=== PATIENT | female | born 1930 | race Hispanic/Latino ===

== ENCOUNTER 2016-11-29 13:12 | Emergency (ER) | payer MEDICARE ==
[2016-11-29 15:14] LABS: Basophils % (Auto) 0.5 % (0.0-1.8); Eosinophils % (Auto) 0.6 % (0.0-4.3); Hematocrit 43.9 % (30.3-42.9); Hemoglobin 14.5 gm/dl (10.1-14.3); Mean Corpuscular HGB Conc 33 % (30-34); Mean Corpuscular Hemoglobin 32 pg (28-32); Mean Corpuscular Volume 96 fl (79-97); Platelet Count 247 K/mm3 (140-440); Red Blood Count 4.57 M/mm3 (3.65-5.03); Red Cell Distribution Width 13.6 % (13.2-15.2); White Blood Count 8.9 K/mm3 (4.5-11.0)
[2016-11-29 15:24] LABS: Alanine Aminotransferase 22 units/L (7-56); Albumin 4.1 g/dL (3.9-5); Albumin/Globulin Ratio 1.3 %; Alkaline Phosphatase 66 units/L (35-129); Anion Gap 12 mmol/L; BUN/Creatinine Ratio 23.33; Blood Urea Nitrogen 14 mg/dL (7-17); Calcium 9.5 mg/dL (8.4-10.2); Carbon Dioxide 31 mmol/L (22-30); Chloride 98.4 mmol/L (98-107); Glucose 105 mg/dL (65-100); Potassium 4.1 mmol/L (3.6-5.0); Sodium 137 mmol/L (137-145); Total Protein 7.3 g/dL (6.3-8.2)
[2016-11-29] MEDS ORDERED: MORPHINE IV ONE (15:27)
[2016-11-29] MEDS ORDERED: NACL 0.9% 1000 ML 1,000 ML IV ONE (15:27)
[2016-11-29 15:35] VITALS: BP 165/97
[2016-11-29 15:35] LABS: Bacteria,Urine 1+ /HPF (Negative); Bilirubin,Urine NEG (Negative); Blood,Urine NEG (Negative); Ketones,Urine NEG (Negative); Leukocyte Esterase,Urine LG (Negative); Nitrite,Urine NEG (Negative); Protein,Urine <15 mg/dL mg/dL (Negative); Urobilinogen,Urine < 2.0 mg/dL (<2.0)
--- NOTE | 2016-11-29 15:49 | Emergency Department Report ---
ED Abdominal Pain HPI - General Chief Complaint: Abdominal Pain Stated Complaint: ABD PAIN/VOMITING Time Seen by Provider: 11/29/16 15:15 Source: patient Mode of arrival: Ambulatory Limitations: No Limitations - History of Present Illness Initial Comments: 86-year-old female with sudden onset of abdominal pain approximately 10 AM this morning. States she ate some toast and drank her morning coffee and then developed abdominal pain. She describes pain as sharp and diffuse. Denies fevers chills nausea or vomiting. She does have a history of A. fib and is on Coumadin. She has had a cholecystectomy. -: Sudden Location: epigastric Migration to: no migration Severity: moderate Severity scale (0 -10): 6 Quality: sharp Consistency: constant Improves With: nothing Worsens With: nothing Associated Symptoms: nausea. denies: vomiting, diarrhea, fever - Related Data Home Medications Medication Instructions Recorded Confirmed Last Taken Budesoni/Formotero 160-4.5(Nf) 2 puff IH BID 03/02/14 03/02/14 03/02/14 [Symbicort 160-4.5 (Nf)] Levothyroxine [Synthroid] 75 mcg PO QAM 03/02/14 03/02/14 03/02/14 Propylene Glycol/Peg 400/Pf 1 - 2 drop OP PRN 03/02/14 03/02/14 03/02/14 [Systane 0.3-0.4% Eye Drops] Previous Rx's Medication Instructions Recorded Last Taken Type Carvedilol [Coreg] 6.25 mg PO BID #60 tablet 03/03/14 Unknown Rx Warfarin Sodium [Coumadin] 3 mg PO QPM #30 tablet 03/03/14 Unknown Rx Acetaminophen [Tylenol Arthritis] 650 mg PO Q6HR PRN #60 tablet.er 11/29/16 Unknown Rx Levofloxacin [Levaquin TAB] 500 mg PO DAILY #9 tablet 11/29/16 Unknown Rx Promethazine [Phenergan TAB] 25 mg PO Q6HR PRN #20 tab 11/29/16 Unknown Rx Allergies Allergy/AdvReac Type Severity Reaction Status Date / Time amoxicillin [Amoxicillin] Allergy Nausea Verified 03/02/14 20:22 pantoprazole sodium Allergy Rash Verified 03/02/14 20:22 [From Protonix] Sulfa (Sulfonamide Allergy Rash Verified 03/02/14 20:22 Antibiotics) esomeprazole magnesium AdvReac Unknown Verified 03/02/14 20:22 [From Nexium] ED Review of Systems ROS: Stated complaint: ABD PAIN/VOMITING Other details as noted in HPI Constitutional: denies: chills, fever Eyes: denies: eye pain, eye discharge, vision change ENT: denies: ear pain, throat pain Respiratory: denies: cough, shortness of breath, wheezing Cardiovascular: denies: chest pain, palpitations Endocrine: no symptoms reported Gastrointestinal: abdominal pain, nausea. denies: vomiting, diarrhea, constipation Genitourinary: denies: urgency, dysuria, discharge Musculoskeletal: denies: back pain, joint swelling, arthralgia Skin: denies: rash, lesions Neurological: denies: headache, weakness, paresthesias Psychiatric: denies: anxiety, depression Hematological/Lymphatic: denies: easy bleeding, easy bruising ED Past Medical Hx - Past Medical History Previous Medical History?: Yes Hx Asthma: Yes Additional medical history: a-fib, diverticulitis, gastritis, hypothyroidism - Surgical History Past Surgical History?: Yes Hx Cholecystectomy: Yes - Family History Family history: no significant - Social History Smoking Status: Never Smoker Substance Use Type: None - Medications Home Medications: Home Medications Medication Instructions Recorded Confirmed Last Taken Type Budesoni/Formotero 160-4.5(Nf) 2 puff IH BID 03/02/14 03/02/14 03/02/14 History [Symbicort 160-4.5 (Nf)] Levothyroxine [Synthroid] 75 mcg PO QAM 03/02/14 03/02/14 03/02/14 History Propylene Glycol/Peg 400/Pf 1 - 2 drop OP PRN 03/02/14 03/02/14 03/02/14 History [Systane 0.3-0.4% Eye Drops] Carvedilol [Coreg] 6.25 mg PO BID #60 tablet 03/03/14 Unknown Rx Warfarin Sodium [Coumadin] 3 mg PO QPM #30 tablet 03/03/14 Unknown Rx Acetaminophen [Tylenol Arthritis] 650 mg PO Q6HR PRN #60 tablet.er 11/29/16 Unknown Rx Levofloxacin [Levaquin TAB] 500 mg PO DAILY #9 tablet 11/29/16 Unknown Rx Promethazine [Phenergan TAB] 25 mg PO Q6HR PRN #20 tab 11/29/16 Unknown Rx ED Physical Exam - General Limitations: No Limitations General appearance: alert, in no apparent distress - Head Head exam: Present: atraumatic, normocephalic - Eye Eye exam: Present: normal appearance - ENT ENT exam: Present: mucous membranes moist - Neck Neck exam: Present: normal inspection - Respiratory Respiratory exam: Present: normal lung sounds bilaterally. Absent: respiratory distress - Cardiovascular Cardiovascular Exam: Present: regular rate, irregular rhythm. Absent: systolic murmur, diastolic murmur, rubs, gallop - GI/Abdominal GI/Abdominal exam: Present: soft, tenderness (epigastric), guarding, normal bowel sounds. Absent: distended, rebound, rigid, mass, pulsatile mass - Extremities Exam Extremities exam: Present: normal inspection, full ROM. Absent: tenderness - Neurological Exam Neurological exam: Present: alert, oriented X3 - Psychiatric Psychiatric exam: Present: normal affect, normal mood - Skin Skin exam: Present: warm, dry, intact, normal color. Absent: rash ED Course Vital Signs 11/29/16 11/29/16 11/29/16 14:35 15:34 15:35 Temperature 97.5 F L Pulse Rate 70 67 Respiratory 16 16 18 Rate Blood Pressure 159/96 Blood Pressure 165/97 [Left] O2 Sat by Pulse 100 96 Oximetry ED Medical Decision Making - Lab Data Result diagrams: 11/29/16 14:52 11/29/16 14:52 Laboratory Results - last 24 hr 11/29/16 11/29/16 11/29/16 14:52 14:52 14:52 WBC 8.9 RBC 4.57 Hgb 14.5 H Hct 43.9 H MCV 96 MCH 32 MCHC 33 RDW 13.6 Plt Count 247 Lymph % (Auto) 11.5 L [place] % (Auto) 4.8 Eos % (Auto) 0.6 Baso % (Auto) 0.5 Lymph # 1.0 L [place] # 0.4 Eos # 0.1 Baso # 0.0 Seg Neutrophils % 82.6 H Seg Neutrophils # 7.4 Sodium 137 Potassium 4.1 Chloride 98.4 Carbon Dioxide 31 H Anion Gap 12 BUN 14 Creatinine 0.6 L Estimated GFR > 60 BUN/Creatinine Ratio 23.33 Glucose 105 H Lactic Acid Calcium 9.5 Total Bilirubin 0.50 AST 34 ALT 22 Alkaline Phosphatase 66 Total Protein 7.3 Albumin 4.1 Albumin/Globulin Ratio 1.3 Lipase 23 Urine Color Urine Turbidity Urine pH Ur Specific [place] Urine Protein Urine Glucose (UA) Urine Ketones Urine Blood Urine Nitrite Urine Bilirubin Urine Urobilinogen Ur Leukocyte Esterase Urine WBC (Auto) Urine RBC (Auto) U Epithel Cells (Auto) Urine Bacteria (Auto) Amorphous Crystals 11/29/16 11/29/16 15:19 15:51 WBC RBC Hgb Hct MCV MCH MCHC RDW Plt Count Lymph % (Auto) [place] % (Auto) Eos % (Auto) Baso % (Auto) Lymph # [place] # Eos # Baso # Seg Neutrophils % Seg Neutrophils # Sodium Potassium Chloride Carbon Dioxide Anion Gap BUN Creatinine Estimated GFR BUN/Creatinine Ratio Glucose Lactic Acid 1.00 Calcium Total Bilirubin AST ALT Alkaline Phosphatase Total Protein Albumin Albumin/Globulin Ratio Lipase Urine Color Yellow Urine Turbidity Cloudy Urine pH 7.0 Ur Specific [place] 1.016 Urine Protein <15 mg/dl Urine Glucose (UA) Neg Urine Ketones Neg Urine Blood Neg Urine Nitrite Neg Urine Bilirubin Neg Urine Urobilinogen < 2.0 Ur Leukocyte Esterase Lg Urine WBC (Auto) 27.0 H Urine RBC (Auto) 6.0 U Epithel Cells (Auto) 6.0 Urine Bacteria (Auto) 1+ Amorphous Crystals Few - Medical Decision Making 86-year-old female with a history of sudden onset abdominal pain this morning she is tender in her epigastrium without significant radiation. Labs do not show an elevated white blood cell count her chemistry is normal. Plan to check lipase and lactate in addition we'll get a CT abdomen and pelvis with IV contrast. Treatment with IV fluids and IV morphine. Labs including CBC lipase and lactate were all normal. She does have 27 whites in her urine. It is possible she has UTI versus pyelonephritis. I did treat with IV ceftriaxone for single dose and discharged home with oral antibiotics. Portions of this chart were dictated with dictation software. There may be dictation errors contained within this note. Critical care attestation.: If time is entered above; I have spent that time in minutes in the direct care of this critically ill patient, excluding procedure time. ED Disposition Clinical Impression: Urinary tract infection, Abdominal pain Disposition: TO HOME OR SELFCARE Is pt being admited?: No Does the pt Need Aspirin: No Condition: Stable Instructions: Abdominal Pain (ED), Urinary Tract Infection in Women (ED) Prescriptions: Acetaminophen [Tylenol Arthritis] 650 mg PO Q6HR PRN #60 tablet.er PRN Reason: Pain Levofloxacin [Levaquin TAB] 500 mg PO DAILY #9 tablet Promethazine [Phenergan TAB] 25 mg PO Q6HR PRN #20 tab PRN Reason: Nausea
[2016-11-29] MEDS ORDERED: NACL ONE (15:57)
--- NOTE | 2016-11-29 16:42 | Cat Scan Report ---
CT of the abdomen and pelvis with IV contrast. History: Abdominal pain. Findings: The liver is normal in size and configuration with no focal abnormalities. The gallbladder has been removed. The spleen is normal treated there appears be a small splenule medial to the spleen. The pancreas is atrophic but otherwise unremarkable. The kidneys are normal in size and configuration with no evidence of mass or hydronephrosis. Numerous diverticula are seen in the distal colon, but no radiographic evidence of diverticulitis is seen. There is no evidence of appendicitis. No free air is identified. A small umbilical hernia is identified with minimal fluid, but no bowel. Impression: 1. Diverticulosis coli. 2. Status post cholecystectomy.
[2016-11-29] MEDS ORDERED: ROCEPHIN/NS 1 GM/50 ML 1 GM/50 ML BAG IV ONE (17:04)
[2016-11-29 17:28] LABS: INR 2.29 (0.87-1.13)
== END 2016-11-29 18:43 | disposition home or self-care (01) ==
LOC: ED 13:12
DX: N39.0 Urinary tract infection, site not specified (principal); J45.909 Unspecified asthma, uncomplicated; E03.9 Hypothyroidism, unspecified
CPT/HCPCS: 36415; 74177; 80053; 81001; 82140; 83690; 85025; 85610; 96361; 96365; 96375; 99284; J0696; J2270; J7030; Q9967

== ENCOUNTER 2016-12-13 11:34 | Inpatient (IN) | payer MEDICARE ==
[2016-12-13 12:42] LABS: Bilirubin,Urine NEG (Negative); Blood,Urine NEG (Negative); Ketones,Urine TR mg/dL (Negative); Leukocyte Esterase,Urine NEG (Negative); Mucus,Urine FEW /HPF; Nitrite,Urine NEG (Negative); Protein,Urine <15 mg/dL mg/dL (Negative); Urobilinogen,Urine < 2.0 mg/dL (<2.0)
[2016-12-13 13:46] LABS: Basophils % (Auto) 0.6 % (0.0-1.8); Eosinophils % (Auto) 0.6 % (0.0-4.3); Hematocrit 41.3 % (30.3-42.9); Hemoglobin 13.6 gm/dl (10.1-14.3); Mean Corpuscular HGB Conc 33 % (30-34); Mean Corpuscular Hemoglobin 32 pg (28-32); Mean Corpuscular Volume 97 fl (79-97); Platelet Count 234 K/mm3 (140-440); Red Blood Count 4.27 M/mm3 (3.65-5.03); Red Cell Distribution Width 13.8 % (13.2-15.2); White Blood Count 6.8 K/mm3 (4.5-11.0)
[2016-12-13 14:03] LABS: Alanine Aminotransferase 29 units/L (7-56); Albumin 3.4 g/dL (3.9-5); Albumin/Globulin Ratio 1.4 %; Alkaline Phosphatase 44 units/L (35-129); Anion Gap 15 mmol/L; BUN/Creatinine Ratio 11.42; Blood Urea Nitrogen 8 mg/dL (7-17); Calcium 9.1 mg/dL (8.4-10.2); Carbon Dioxide 27 mmol/L (22-30); Glucose 104 mg/dL (65-100); Lipase 25 units/L (13-60); Potassium 4.2 mmol/L (3.6-5.0); Sodium 139 mmol/L (137-145); Total Protein 5.9 g/dL (6.3-8.2)
--- NOTE | 2016-12-13 14:17 | XRay Report ---
Flat and upright abdomen: History: Abdominal pain. Findings: No free intraperitoneal air. Moderately distended loops of small bowel with minimal air the large bowel. No radiopaque calculus or abnormal calcification. Impression: Incomplete small bowel obstruction or ileus.
[2016-12-13] MEDS ORDERED: NACL ONE (16:06)
--- NOTE | 2016-12-13 17:03 | Emergency Department Report ---
HPI <JONATHAN STANLEY - Last Filed: 12/13/16 18:00> - HPI HPI: This is a 86-year-old female presents to the emergency department with right lower quadrant abdominal and flank pain that started this morning. The patient says she has a recent history of visiting [facility] and being diagnosed with a urinary tract infection. She had a CT of the abdomen and pelvis at that time that did not show any acute process for abdominal pain and was sent home with antibiotics. She is followed up with her primary care physician and has been on further antibiotics since. However, today patient began having sharp right lower quadrant abdominal pains. She denies any nausea , vomiting, dysuria, problems with bowel or bladder. She is not taken anything today for her symptoms prior to presentation. She has a past medical history of atrial fibrillation, diverticulitis, gastritis and hypothyroidism. <MAGGI RANDLE - Last Filed: 12/16/16 20:20> - General Chief Complaint: Abdominal Pain Time Seen by Provider: 12/13/16 12:15 ED Past Medical Hx <JONATHAN STANLEY - Last Filed: 12/13/16 18:00> - Past Medical History Hx Asthma: Yes Additional medical history: a-fib, diverticulitis, gastritis, hypothyroidism - Surgical History Hx Cholecystectomy: Yes - Social History Smoking Status: Never Smoker Substance Use Type: None <MAGGI RANDLE - Last Filed: 12/16/16 20:20> - Medications Home Medications: Home Medications Medication Instructions Recorded Confirmed Last Taken Type Budesoni/Formotero 160-4.5(Nf) 2 puff IH BID 03/02/14 12/13/16 12/12/16 20:00 History [Symbicort 160-4.5 (Nf)] 2 PUFFS Levothyroxine [Synthroid] 75 mcg PO QAM 03/02/14 12/13/16 12/12/16 06:00 History Propylene Glycol/Peg 400/Pf 1 - 2 drop OP PRN 03/02/14 12/13/16 03/02/14 History [Systane 0.3-0.4% Eye Drops] ALBUTEROL Inhaler [ProAir HFA 2 puff IH BID PRN 12/13/16 12/13/16 Unknown History Inhaler] Warfarin Sodium [Coumadin] 2.5 mg PO QPM 12/13/16 12/13/16 12/12/16 20:00 History 2.5 MG Sennosides [Senna] 8.6 mg PO DAILY #30 tablet 12/16/16 Unknown Rx ED Review of Systems ROS: Stated complaint: ABD PAIN Other details as noted in HPI <JONATHAN STANLEY - Last Filed: 12/13/16 18:00> ROS: Stated complaint: ABD PAIN Other details as noted in HPI Comment: All other systems reviewed and negative Constitutional: denies: chills, fever Eyes: denies: eye pain, eye discharge, vision change ENT: denies: ear pain, throat pain Respiratory: denies: cough, shortness of breath, wheezing Cardiovascular: denies: chest pain, palpitations Gastrointestinal: abdominal pain. denies: vomiting Genitourinary: denies: urgency, dysuria, discharge Musculoskeletal: denies: back pain, joint swelling, arthralgia Skin: denies: rash, lesions Neurological: denies: headache, weakness, paresthesias <MAGGI RANDLE - Last Filed: 12/16/16 20:20> Physical Exam - Physical Exam Vital Signs: Vital Signs 12/13/16 12/13/16 12/13/16 11:57 14:13 16:34 Temperature 98.1 F Pulse Rate 82 88 88 Respiratory 18 20 18 Rate Blood Pressure 110/59 Blood Pressure 134/81 150/86 [Left] O2 Sat by Pulse 94 100 95 Oximetry 12/13/16 17:56 Temperature Pulse Rate 86 Respiratory 18 Rate Blood Pressure Blood Pressure 158/87 [Left] O2 Sat by Pulse 94 Oximetry <JONATHAN STANLEY - Last Filed: 12/13/16 18:00> - Physical Exam Vital Signs: Vital Signs 12/13/16 12/13/16 12/13/16 11:57 14:13 16:34 Temperature 98.1 F Pulse Rate 82 88 88 Respiratory 18 20 18 Rate Blood Pressure 110/59 Blood Pressure 134/81 150/86 [Left] O2 Sat by Pulse 94 100 95 Oximetry Physical Exam: GENERAL: The patient is well-developed well-nourished. HEENT: Normocephalic. Atraumatic. Extraocular motions are intact. Patient has moist mucous membranes. Pupils equal reactive to light bilaterally. NECK: Supple. Trachea is midline. CHEST/LUNGS: Clear to auscultation. There is no respiratory distress noted. HEART/CARDIOVASCULAR: Regular. There is no tachycardia. There is no gallop rub or murmur. ABDOMEN: Abdomen is soft. Patient has reproducible tenderness to palpation to the right lower quadrant. No guarding rebound tenderness. Patient has normal bowel sounds. There is no abdominal distention. SKIN: There is no rash. There is no edema. There is no diaphoresis. NEURO: The patient is awake, alert, and oriented. The patient is cooperative. The patient has no focal neurologic deficits. The patient has normal speech. MUSCULOSKELETAL: There is no tenderness or deformity. There is no limitation range of motion. There is no evidence of acute injury. <MAGGI RANDLE - Last Filed: 12/16/16 20:20> ED Course Vital Signs 12/13/16 12/13/16 12/13/16 11:57 14:13 16:34 Temperature 98.1 F Pulse Rate 82 88 88 Respiratory 18 20 18 Rate Blood Pressure 110/59 Blood Pressure 134/81 150/86 [Left] O2 Sat by Pulse 94 100 95 Oximetry 12/13/16 17:56 Temperature Pulse Rate 86 Respiratory 18 Rate Blood Pressure Blood Pressure 158/87 [Left] O2 Sat by Pulse 94 Oximetry - Reevaluation(s) Reevaluation #1: 12/13/16 18:00 She was signed out to me by Dr. Randle, briefly she presented to the ED with right lower quadrant abdominal pain. CAT scan results are as follows: Final and mid small bowel prominence with gas and air filled levels. Transition point appears to be in the pelvis of the findings are nonspecific. Considerations include partial small bowel obstruction or paralytic ileus. Scattered linear and bandlike densities in both lung bases may be scar atelectasis. Differential includes pneumonia in the region of consolidation. Grade 1 degenerative spondylolisthesis at L4-L5 Prothrombin local hernia contains fluid Small hernia hiatal Sigmoid and descending colon diverticulosis without definite evidence of acute formation. Dr. FALLON Reevaluation #2: 12/13/16 18:03 Dr. Carrillo general surgery is aware of pt and will consult during inpt admission Pt has been admitted to Dr Leif bowman. Incidental findings and CT was explained to patient a copy CT was given to patient for primary care follow-up after discharge. <JONATHAN STANLEY - Last Filed: 12/13/16 18:00> Vital Signs 12/13/16 12/13/16 12/13/16 11:57 14:13 16:34 Temperature 98.1 F Pulse Rate 82 88 88 Respiratory 18 20 18 Rate Blood Pressure 110/59 Blood Pressure 134/81 150/86 [Left] O2 Sat by Pulse 94 100 95 Oximetry <MAGGI RANDLE - Last Filed: 12/16/16 20:20> ED Medical Decision Making - Lab Data Result diagrams: 12/13/16 13:20 12/13/16 13:20 <JONATHAN STANLEY - Last Filed: 12/13/16 18:00> - Lab Data Result diagrams: 12/15/16 06:57 12/15/16 06:57 - Radiology Data Radiology results: report reviewed, image reviewed interpreted by me: Abdominal x-ray shows nonspecific nonobstructive bowel gas. CT of the abdomen and pelvis with IV contrast shows proximal and mid small bowel prominence with gas and air-fluid levels. Transition point appears to be in the pelvis all the findings are nonspecific. Considerations include partial small bowel obstruction or paralytic ileus. Scattered been urine bandlike densities in both lung bases may be scar atelectasis. Grade 1 degenerative spondylolisthesis at L4 to 5. Small umbilical hernia containing fluid. Sigmoid and descending colon diverticulosis without diverticulitis. - Medical Decision Making 86-year-old female presents to the emergency department with continued abdominal discomfort. Labs are mostly unremarkable and do not show any etiology of her symptoms. Abdominal x-ray was read by radiology as concern for partial small bowel obstruction versus ileus. A CT of the abdomen and pelvis with IV contrast was done that eventually showed concern for partial small bowel obstruction versus ileus as well. The results were read by radiology and seen by my colleague who then got the patient admitted on my behalf. Accepted for admission by the hospitalist service, Dr. Yadav. - Differential Diagnosis gastroenteritis, gastritis, diverticulitis, bowel obstruction, ileus <MAGGI RANDLE - Last Filed: 12/16/16 20:20> Critical care attestation.: If time is entered above; I have spent that time in minutes in the direct care of this critically ill patient, excluding procedure time. <JONATHAN STANLEY - Last Filed: 12/13/16 18:00> Critical Care Time: No Critical care attestation.: If time is entered above; I have spent that time in minutes in the direct care of this critically ill patient, excluding procedure time. <MAGGI RANDLE - Last Filed: 12/16/16 20:20> ED Disposition Is pt being admited?: Yes Does the pt Need Aspirin: No <JONATHAN STANLEY - Last Filed: 12/13/16 18:00> Is pt being admited?: Yes <MAGGI RANDLE - Last Filed: 12/16/16 20:20> Clinical Impression: Small bowel obstruction Abdominal pain Qualifiers: Abdominal location: right lower quadrant Qualified Code(s): R10.31 - Right lower quadrant pain Disposition: OP ADMIT IP TO THIS HOSP Condition: Stable
--- NOTE | 2016-12-13 17:37 | Cat Scan Report ---
FINAL REPORT EXAM: CT ABD AND PELVIS W CONTRAST HISTORY: abdominal pain TECHNIQUE: CT examination of the ABDOMEN after IV contrast CT examination of the PELVIS after IV contrast PRIORS: None. FINDINGS: Nonspecific linear and bandlike densities in both lung bases may be scar or atelectasis. Superimposed pneumonia in the region of slight consolidation is in the differential. Degenerative change in the regional skeleton. No acute fracture or significant osseous lesion. Grade 1 degenerative spondylolisthesis at L4-5 without evidence of spondylolysis. Lumbar scoliosis with upper right apex. Surgically absent gallbladder. Normal-appearing liver, adrenals, pancreas, and spleen. Intact normal caliber abdominal aorta with moderate calcified atherosclerotic plaque. Normal caliber IVC. Normal-appearing kidneys and ureters. A nonspecific very small fluid containing umbilical hernia. Small hiatal hernia. Otherwise normal appearing stomach and duodenum. Nonspecific prominent caliber of small bowel loops in the abdomen and pelvis. These contain gas and air-fluid levels. Transition point appears to be in the pelvis with normal caliber small intestine in the lower pelvis. Considerations include paralytic ileus and/or partial obstruction No pelvic free fluid. Normal-appearing urinary bladder. Uterus not visualized. No adnexal abnormality. Normal-appearing rectum. Moderate scattered diverticulosis in the sigmoid colon without definite evidence of acute inflammation. Slight diverticulosis in descending colon. No gross ascites, free air, or colonic distention. Normal-appearing cecum and terminal ileum. Appendix not visualized. No pericecal inflammation. IMPRESSION: Proximal and mid small bowel prominence with gas and air-fluid levels. Transition point appears to be in the pelvis although findings are nonspecific. Considerations include partial small bowel obstruction or paralytic ileus Scattered linear and bandlike densities in both lung bases may be scar or atelectasis. Differential includes pneumonia in the region of consolidation Grade 1 degenerative spondylolisthesis at L4-5 Very small umbilical hernia contains fluid Small hiatal hernia Sigmoid and descending colon diverticulosis without definite evidence of acute inflammation
--- NOTE | 2016-12-13 18:11 | Admit Criteria Form ---
Admission Criteria Documentation: ABDOMINAL PAIN Clinical Indications for Admission to Inpatient Care (Place 'X' for any and all applicable criteria): Admission is indicated for ANY ONE of the following(1)(2)(3)(4)(5): [X ]I. Inpatient admission required rather than observation care (Also use Abdominal Pain: Observation Care, as appropriate) because of ANY ONE of the following: [ ]a) Severe pain requiring acute inpatient management [ ]b) Identification of etiology/finding that requires inpatient care (eg, aortic dissection, free air) [ ]c) Absent bowel sounds with complete ileus(6) [ ]d) Suspected toxic megacolon [ ]e) Severe electrolyte abnormalities requiring inpatient care [ ]f) High fever or infection requiring inpatient admission as indicated by ANY ONE of following(7)(8): [ ] i) Appropriate outpatient or observational care antimicrobial treatment unavailable, not effective, or not feasible [ ] ii) Documented bacteremia [ ] iii) Temperature > 104.9 degrees F (oral) [ ] iv) T >103.1 F (oral) or < 96.8 F(rectal) that does not respond to all emergency treatment measures [X ]g) Signs of intestinal obstruction [B] [ ]h) Hemodynamic instability [ ]i) IV fluid to replace significant ongoing losses (greater than 3 L/m2 per day) (12)(13) [ ]j) Percutaneous or open drainage (eg, abscess, biliary tract ) procedures [ ]k) Parenteral nutrition regimen that must be implemented on inpatient basis [ ]l) Other condition,treatment or monitoring requiring inpatient admission. [ ]II. Peritoneal signs present [ ]III. Surgery needed that cannot be performed on an ambulatory basis. [ ]IV. Evaluation requires patient to not eat or drink for extended period ( eg, more than 24 hours). [ ]V. Contraindications and/or Inappropriate clinical situations for Observational Care in patients with abdominal pain, when ANY ONE of the following is required: [ ]a) Thorough evaluation is required to prevent catastrophic events due to delays in diagnosing (e.g.Mesenteric ischemia) 1,3 [ ]b) Patient with severe pathology or with chronic symptoms unlikely to improve in the ED stay (3) [ ]. General contraindications and/or Inappropriate clinical situations for Observational Care in patients with abdominal pain, when ANY ONE of the following is required: [ ]a) Prediction of prolongation of LOS based on ANY ONE of the following may be considered as a contraindication for observational care 2, 3, 4, 5, 6, 7, 8, 9, 10, 11 [ ]i) Age > 65 yrs. [ ]ii) Patient arriving by ambulance [ ]iii) Patient with high acuity [ ]iv) Patient requiring vital sign monitoring [ ]v) Patient on IV medication [ ]b) Systolic blood pressures 180mmHg 3,12 [ ]c) Patient with altered mental status including delirium and other alteration of consciousness, (3) [ ]d) Patient whose discharge disposition will be to a [facility]ci home or rehabilitation home should not be managed in Emergency Department Observation Unit. CMS rule requires 3 days hospital stay before such placement.3,13 [ ]e) Patient with failure to thrive due to broad array of etiologies 3,16,17 [ ]f) Inability to ambulate 3,14 Extended stay beyond goal length of stay may be needed for(2)(3): [ ]a) Persistent abdominal pain with suspected intra-abdominal process [ ]b) Diagnosed condition requiring continued stay (e.g., pancreatitis, complicated diverticulitis) [ ]c) Surgery (e.g., colectomy) The original [facility] content created by [employer] has been revised. The portions of the content which have been revised are identified through the use of italic text or in bold, and [facility] has neither reviewed nor approved the modified material.All other unmodified content is copyright [facility]. Please see references footnoted in the original [facility] edition 2016 Admission Criteria Met: Yes
--- NOTE | 2016-12-13 19:26 | History and Physical Report ---
History of Present Illness Chief complaint: My stomach hurts. History of present illness: 86 YO Female with Asthma, A fib, Diverticulosis, Hypothyroidism presents to ED for evaluation. Pt states that she has been experiencing abdominal pain for the past 2 weeks with worsening symptoms over the past 4 hours. Pt states that the pain started again this morning, the pain is 4-7/10, constant, nonradiating, localized to RLQ, worse with movement, and relieved with rest, or lying still. Pt denies fever, chills, CP, Palpitations, nausea, vomiting, dysuria, trauma, BRBPR, hematemesis, recent ill contacts. Past History Past Medical History: atrial fib, hypothyroidism, other (asthma, diverticulosis , obesity.) Past Surgical History: cholecystectomy Social history: , lives with family. denies: smoking, alcohol abuse, prescription drug abuse Family history: hypertension Medications and Allergies Allergies Allergy/AdvReac Type Severity Reaction Status Date / Time amoxicillin [Amoxicillin] Allergy Nausea Verified 12/13/16 19:40 pantoprazole sodium Allergy Rash Verified 12/13/16 19:40 [From Protonix] Sulfa (Sulfonamide Allergy Rash Verified 12/13/16 19:40 Antibiotics) esomeprazole magnesium AdvReac Unknown Verified 12/13/16 19:40 [From Nexium] Home Medications Medication Instructions Recorded Confirmed Last Taken Type Budesoni/Formotero 160-4.5(Nf) 2 puff IH BID 03/02/14 12/13/16 12/12/16 20:00 History [Symbicort 160-4.5 (Nf)] 2 PUFFS Levothyroxine [Synthroid] 75 mcg PO QAM 03/02/14 12/13/16 12/12/16 06:00 History Propylene Glycol/Peg 400/Pf 1 - 2 drop OP PRN 03/02/14 12/13/16 03/02/14 History [Systane 0.3-0.4% Eye Drops] ALBUTEROL Inhaler [Proair] 2 puff IH BID PRN 12/13/16 12/13/16 Unknown History Warfarin Sodium [Coumadin] 2.5 mg PO QPM 12/13/16 12/13/16 12/12/16 20:00 History 2.5 MG Review of Systems All systems: negative Constitutional: no weight loss Ears, nose, mouth and throat: no ear pain Breasts: no swelling Cardiovascular: no chest pain Respiratory: no cough Gastrointestinal: abdominal pain Genitourinary Female: no pelvic pain Menstruation: no ammenorrhea Rectal: no pain Musculoskeletal: no neck pain Integumentary: no rash Neurological: no head injury Psychiatric: no anxiety Endocrine: no cold intolerance Hematologic/Lymphatic: no easy bruising Allergic/Immunologic: no urticaria Exam - Constitutional Vitals: Temp Pulse Resp BP Pulse Ox 98.1 F 86 18 158/87 94 12/13/16 11:57 12/13/16 17:56 12/13/16 17:56 12/13/16 17:56 12/13/16 17:56 General appearance: Present: mild distress, obese - EENT Eyes: Present: PERRL ENT: hearing intact, clear oral mucosa - Neck Neck: Present: supple, normal ROM - Respiratory Respiratory effort: normal Respiratory: bilateral: CTA - Cardiovascular Rhythm: other (tachycardia) - Extremities Extremities: pulses symmetrical, No edema Peripheral Pulses: within normal limits - Abdominal General gastrointestinal: Present: soft, tender, hypoactive bowel sounds. Absent: hepatomegaly, splenomegaly, mass, hernia Localized gastrointestinal: tender: RLQ, rebound: RLQ Female genitourinary: Present: normal - Rectal Rectal Exam: normal exam-external/orifice - Integumentary Integumentary: Present: clear, dry - Musculoskeletal Musculoskeletal: gait normal, strength equal bilaterally - Psychiatric Psychiatric: appropriate mood/affect, intact judgment & insight - Neurologic Neurologic: CNII-XII intact, moves all extremities Results - Labs CBC & Chem 7: 12/13/16 13:20 12/13/16 13:20 Labs: Abnormal lab results 12/13/16 12/13/16 Range/Units 13:20 13:20 Lymph % (Auto) 12.4 L (13.4-35.0) % Lymph # 0.8 L (1.2-5.4) K/mm3 Seg Neutrophils % 79.1 H (40.0-70.0) % Glucose 104 H (65-100) mg/dL AST 51 H (5-40) units/L Total Protein 5.9 L (6.3-8.2) g/dL Albumin 3.4 L (3.9-5) g/dL Assessment and Plan - Patient Problems (1) Bowel obstruction Current Visit: Yes Status: Acute Qualifiers: Intestinal obstruction type: I Plan to address problem: Surgery consulted in ED, IVF, supportive care, serial abdominal exam, repeat AB xray, lactic acid level (2) Peritonitis Current Visit: Yes Status: Acute Plan to address problem: IVF, IV abx, bowel rest, supportive care (3) Obesity Current Visit: Yes Status: Acute Qualifiers: Obesity type: O Obesity classification: O Serious obesity comorbidity presence: S Body mass index: BMI 30.0-30.9 Plan to address problem: Balanced diet, increased physical activity (4) Asthma Current Visit: Yes Status: Acute Qualifiers: Asthma severity: mild intermittent Asthma complication type: A Plan to address problem: Nebulized therapy, supplemental oxygen, supportive care. (5) Atrial fibrillation Current Visit: Yes Status: Acute Qualifiers: Atrial fibrillation type: A Plan to address problem: resume home medication, (6) DVT prophylaxis Current Visit: Yes Status: Acute
[2016-12-13] MEDS ORDERED: TYLENOL PO PRN (19:29)
[2016-12-13] MEDS ORDERED: DUONEB *Not for PRN Use IH (19:29)
[2016-12-13] MEDS ORDERED: PROAIR IH PRN (19:34)
[2016-12-13] MEDS ORDERED: PROVENTIL IH PRN (19:40)
[2016-12-13] MEDS ORDERED: LEVAQUIN 750MG/150ML 750 MG/150 ML BAG IV SCH (20:00)
[2016-12-13] MEDS ORDERED: LEVAQUIN 750MG/150ML 750 MG/150 ML BAG IV ONE (21:29)
[2016-12-13] MEDS ORDERED: NON-FORMULARY (Budesoni/Formotero 160-4.5(Nf) 2 PUFF) IH SCH (22:00)
[2016-12-14] MEDS: BROVANA NEBU IH SCH ×4 (00:01→20:09)
[2016-12-14] MEDS: PULMICORT IH SCH ×3 (00:02→20:09)
[2016-12-14 00:37] LABS: INR 4.94 (0.87-1.13)
[2016-12-14] MEDS: D5/0.45NS 1,000 ML IV SCH ×2 (01:15→22:03)
[2016-12-14] MEDS: SYNTHROID PO SCH (06:01)
[2016-12-14 06:07] LABS: INR 1.97 (0.87-1.13)
[2016-12-14] MEDS ORDERED: LEVAQUIN 500MG/100ML 500 MG/100 ML BAG IV SCH (10:00)
--- NOTE | 2016-12-14 10:43 | Progress Note ---
Assessment and Plan Assessment and plan: Abdominal pain. Paralytic ileus versus partial small bowel obstruction. Patient admitted to medical floor. NPO, iv fluids. GI Physician consulted. Morphine iv when necessary for pain management Hypothyroidsm. Check TSH and FT4 levels Atrial fibrillation. On Coumadin. INR 1.97 today. Resume Coumadin. DVT prophylaxis. On Coumadin FULL CODE STATUS History Interval history: Patient presented with abdominal pain, no vomiting Hospitalist Physical - Physical exam Narrative exam: Gen Appearance: No acute distress,obese HEENT: normocephalic, atraumatic Neck: supple, no JVD Lungs: Clear to auscultation bilaterally, no wheeze. Heart: S1 and S2 regular, no murmurs, no rubs , no gallop Abdomen: Soft , mild right lower quadrant tender, no rebound tenderness, normal bowel sounds Extremity: No edema, clubbing or cyanosis Neuro : Awake, alert,oriented x3 , No focal neurological signs. - Constitutional Vitals: Temp Pulse Resp BP Pulse Ox 98.4 F 69 18 130/62 95 12/14/16 07:25 12/14/16 09:10 12/14/16 09:10 12/14/16 07:25 12/14/16 09:00 Results - Labs CBC & Chem 7: 12/13/16 13:20 12/13/16 13:20 Labs: Laboratory Last Values WBC 6.8 K/mm3 (4.5-11.0) 12/13/16 13:20 RBC 4.27 M/mm3 (3.65-5.03) 12/13/16 13:20 Hgb 13.6 gm/dl (10.1-14.3) 12/13/16 13:20 Hct 41.3 % (30.3-42.9) 12/13/16 13:20 MCV 97 fl (79-97) 12/13/16 13:20 MCH 32 pg (28-32) 12/13/16 13:20 MCHC 33 % (30-34) 12/13/16 13:20 RDW 13.8 % (13.2-15.2) 12/13/16 13:20 Plt Count 234 K/mm3 (140-440) 12/13/16 13:20 Lymph % (Auto) 12.4 % (13.4-35.0) L 12/13/16 13:20 [place] % (Auto) 7.3 % (0.0-7.3) 12/13/16 13:20 Eos % (Auto) 0.6 % (0.0-4.3) 12/13/16 13:20 Baso % (Auto) 0.6 % (0.0-1.8) 12/13/16 13:20 Lymph # 0.8 K/mm3 (1.2-5.4) L 12/13/16 13:20 [place] # 0.5 K/mm3 (0.0-0.8) 12/13/16 13:20 Eos # 0.0 K/mm3 (0.0-0.4) 12/13/16 13:20 Baso # 0.0 K/mm3 (0.0-0.1) 12/13/16 13:20 Seg Neutrophils % 79.1 % (40.0-70.0) H 12/13/16 13:20 Seg Neutrophils # 5.4 K/mm3 (1.8-7.7) 12/13/16 13:20 PT 23.5 Sec. (12.2-14.9) H 12/14/16 05:33 INR 1.97 (0.87-1.13) H 12/14/16 05:33 Sodium 139 mmol/L (137-145) 12/13/16 13:20 Potassium 4.2 mmol/L (3.6-5.0) 12/13/16 13:20 Chloride 101.0 mmol/L (98-107) 12/13/16 13:20 Carbon Dioxide 27 mmol/L (22-30) 12/13/16 13:20 Anion Gap 15 mmol/L 12/13/16 13:20 BUN 8 mg/dL (7-17) 12/13/16 13:20 Creatinine 0.7 mg/dL (0.7-1.2) 12/13/16 13:20 Estimated GFR > 60 ml/min 12/13/16 13:20 BUN/Creatinine Ratio 11.42 % 12/13/16 13:20 Glucose 104 mg/dL (65-100) H 12/13/16 13:20 Lactic Acid 0.90 mmol/L (0.7-2.0) 12/13/16 19:56 Calcium 9.1 mg/dL (8.4-10.2) 12/13/16 13:20 Total Bilirubin 0.50 mg/dL (0.1-1.2) 12/13/16 13:20 AST 51 units/L (5-40) H 12/13/16 13:20 ALT 29 units/L (7-56) 12/13/16 13:20 Alkaline Phosphatase 44 units/L (35-129) 12/13/16 13:20 Total Protein 5.9 g/dL (6.3-8.2) L 12/13/16 13:20 Albumin 3.4 g/dL (3.9-5) L 12/13/16 13:20 Albumin/Globulin Ratio 1.4 % 12/13/16 13:20 Lipase 25 units/L (13-60) 12/13/16 13:20 Urine Color Yellow (Yellow) 12/13/16 12:29 Urine Turbidity Clear (Clear) 12/13/16 12:29 Urine pH 6.0 (5.0-7.0) 12/13/16 12:29 Ur Specific [place] 1.014 (1.003-1.030) 12/13/16 12:29 Urine Protein <15 mg/dl mg/dL (Negative) 12/13/16 12:29 Urine Glucose (UA) Neg mg/dL (Negative) 12/13/16 12:29 Urine Ketones Tr mg/dL (Negative) 12/13/16 12:29 Urine Blood Neg (Negative) 12/13/16 12:29 Urine Nitrite Neg (Negative) 12/13/16 12:29 Urine Bilirubin Neg (Negative) 12/13/16 12:29 Urine Urobilinogen < 2.0 mg/dL (<2.0) 12/13/16 12:29 Ur Leukocyte Esterase Neg (Negative) 12/13/16 12:29 Urine WBC (Auto) 1.0 /HPF (0.0-6.0) 12/13/16 12:29 Urine RBC (Auto) 5.0 /HPF (0.0-6.0) 12/13/16 12:29 Urine Mucus Few /HPF 12/13/16 12:29
[2016-12-14] MEDS ORDERED: MORPHINE IV PRN ×2 (14:47→18:35)
[2016-12-14] MEDS ORDERED: COUMADIN NO DOSE TODAY PO ONE (17:00)
[2016-12-14] MEDS: COUMADIN PO SCH (17:23)
[2016-12-14] MEDS ORDERED: WARFARIN SODIUM 2.5 MG PO SCH (18:00)
--- NOTE | 2016-12-14 18:43 | Gastroenterology Consultation ---
History of Present Illness - Reason for Consult Consult date: 12/14/16 Partial SBO Requesting physician: TAVIA STAPLES - History of Present Illness The patient is an 86 yo female admitted with a 2 week hx of intermittent N/V with abdominal pain. This is most severe in the RLQ, but is intermittent in nature. It is not associated with stools or eating. She has had markedly less stool output in the last 2 weeks (ever since a "severe UTI") and her stomach sometimes swells very large. Since being admitted yesterday, she has had 3 BMs. She has no blood in the stool, and she says the pain is much better today. She is passing flatus daily. She had a negative colonoscopy 2 years ago , and she has no hx of abdominal adhesions. She has had a lap CCY, as well as a MARCO. She has had no hx of bowel obstruction, but a CT scan in the ER was read as a partial bowel obstruction versus ileus. She has no family hx of GI cancer. Prior to this illness, she was active and had no exertional CP or SOB. Past History Past Medical History: atrial fib, hypothyroidism, other (asthma, diverticulosis , obesity.) Past Surgical History: cholecystectomy Social history: , lives with family. denies: smoking, alcohol abuse, prescription drug abuse Family history: hypertension Medications and Allergies Allergies Allergy/AdvReac Type Severity Reaction Status Date / Time amoxicillin [Amoxicillin] Allergy Nausea Verified 12/13/16 19:40 pantoprazole sodium Allergy Rash Verified 12/13/16 19:40 [From Protonix] Sulfa (Sulfonamide Allergy Rash Verified 12/13/16 19:40 Antibiotics) esomeprazole magnesium AdvReac Unknown Verified 12/13/16 19:40 [From Nexium] Home Medications Medication Instructions Recorded Confirmed Last Taken Type Budesoni/Formotero 160-4.5(Nf) 2 puff IH BID 03/02/14 12/13/16 12/12/16 20:00 History [Symbicort 160-4.5 (Nf)] 2 PUFFS Levothyroxine [Synthroid] 75 mcg PO QAM 03/02/14 12/13/16 12/12/16 06:00 History Propylene Glycol/Peg 400/Pf 1 - 2 drop OP PRN 03/02/14 12/13/16 03/02/14 History [Systane 0.3-0.4% Eye Drops] ALBUTEROL Inhaler [Proair] 2 puff IH BID PRN 12/13/16 12/13/16 Unknown History Warfarin Sodium [Coumadin] 2.5 mg PO QPM 12/13/16 12/13/16 12/12/16 20:00 History 2.5 MG Active Meds: Active Medications Acetaminophen (Tylenol) 650 mg PO Q4H PRN PRN Reason: Pain MILD(1-3)/Fever >100.5/WHEAT Albuterol (Proventil) 2.5 mg IH Q4HRT PRN PRN Reason: Shortness Of Breath Arformoterol Tartrate (Brovana Nebu) 15 mcg IH Q12HRT [facility] Last Admin: 12/14/16 08:57 Dose: 15 mcg Budesonide (Pulmicort) 1 mg IH Q12HRT [facility] Last Admin: 12/14/16 08:58 Dose: 1 mg Dextrose/Sodium Chloride (D5/0.45ns) 1,000 mls @ 75 mls/hr IV DIRECT [facility] Last Admin: 12/14/16 01:15 Dose: 75 mls/hr Levofloxacin/Dextrose (Levaquin 750mg/150ml) 750 mg in 150 mls @ 150 mls/hr IV Q48H [facility] PRN Reason: Protocol Last Admin: 12/13/16 21:38 Dose: 150 mls/hr Levothyroxine Sodium (Synthroid) 75 mcg PO 0600 [facility] Last Admin: 12/14/16 06:01 Dose: 75 mcg Morphine Sulfate (Morphine) 1 mg IV Q6H PRN PRN Reason: Pain, Moderate (4-6) Warfarin Sodium (Coumadin) 2.5 mg PO DAILY@1700 [facility] Last Admin: 12/14/16 17:23 Dose: 2.5 mg Review of Systems - Review of Systems All systems: negative (as noted in the HPI.) Exam - Constitutional Vital Signs: Temp Pulse Resp BP Pulse Ox 98.3 F 76 20 156/72 95 12/14/16 17:09 12/14/16 17:09 12/14/16 17:09 12/14/16 17:09 12/14/16 17:09 General appearance: no acute distress - EENT Eyes: PERRL, EOM intact ENT: hearing intact, clear oral mucosa - Neck Neck: supple, normal ROM - Respiratory Respiratory effort: normal Respiratory: bilateral: CTA - Cardiovascular Rhythm: regular Heart Sounds: Present: S1 & S2 Extremities: no ischemia, No edema - Gastrointestinal General gastrointestinal: Present: soft, non-tender, distended (Mild distention of the bowels but BS appear normal.) - Integumentary Integumentary: Present: clear, warm, dry - Neurologic Neurological: alert and oriented x3 - Labs CBC & Chem 7: 12/13/16 13:20 12/13/16 13:20 Lab Results: Laboratory Results - last 24 hr 12/13/16 12/13/16 12/14/16 19:56 23:27 05:33 PT 48.7 H 23.5 H INR 4.94 H 1.97 H Lactic Acid 0.90 TSH Free T4 12/14/16 12/14/16 16:04 16:04 PT INR Lactic Acid TSH 0.749 Free T4 1.87 H Assessment and Plan - Patient Problems (1) Partial small bowel obstruction Current Visit: Yes Status: Acute Plan to address problem: - Given the history of a MARCO, as well as the appearance of the CT, I strongly suspect this is a partial SBO, probably from adhesions from prior MARCO. - Agree with SBFT. - Since the patient has had 3 BMs in the last 24 hours, and is not grossly distended with N/V, OK to continue liquid diet for now. - Since afebrile with a normal WBC, I would not give antibiotics at present.
--- NOTE | 2016-12-15 03:17 | Consultation ---
HISTORY OF PRESENT ILLNESS: I was called by Dr. Mccullough to see this patient. She is an 86-year-old white female. She is a known case of asthma. She had atrial fibrillation and diverticulosis in the past. She had also hypothyroidism. She came over for severe progressive pain in the right lower quadrant for about of 2 weeks' duration, nausea and vomiting. The patient had the same pain about 2 weeks ago. She was in the hospital in the ER where she had a KUB and a small bowel series that were negative according to her. So, she was discharged home. At this time, the pain has recurred and was localized with nausea and vomiting and so she was admitted by our hospitalist. Her CBC showed a white count of 6.8, hemoglobin was 13.6, INR is 1.97. The patient is on Coumadin apparently for atrial fibrillation. Her potassium is 4.2, sodium was 139, creatinine 0.7, bilirubin was 0.50, lipase was 25. PHYSICAL EXAMINATION: GENERAL: Showed an elderly lady. She told me that the pain is much less now. HEAD AND NECK: Negative. BREASTS: Symmetric. No evidence of specific masses. CHEST: Essentially clear. HEART: Sound normal. ABDOMEN: Protuberant, soft, benign, [id number] tenderness; however, in the right mid lower abdomen. EXTREMITIES: Showed no significant edema. IMPRESSION AND PLAN: Abdominal pain, nausea and vomiting with a picture of ? small-bowel obstruction, the etiology of which is unknown. We need to pursue that with small bowel series including a Gastrografin and then we will go from there. I did talk to her and her and they are aware of the fact. JOB# [id number] FEI/BRIANA
[2016-12-15] MEDS: SYNTHROID PO SCH (06:22)
[2016-12-15 07:29] LABS: Hematocrit 39.5 % (30.3-42.9); Hemoglobin 12.9 gm/dl (10.1-14.3); Mean Corpuscular HGB Conc 33 % (30-34); Mean Corpuscular Hemoglobin 32 pg (28-32); Mean Corpuscular Volume 96 fl (79-97); Platelet Count 254 K/mm3 (140-440); Red Cell Distribution Width 13.4 % (13.2-15.2); White Blood Count 5.6 K/mm3 (4.5-11.0)
[2016-12-15] MEDS: BROVANA NEBU IH SCH ×2 (07:29→19:49)
[2016-12-15] MEDS: PULMICORT IH SCH ×2 (07:30→19:48)
[2016-12-15 07:46] LABS: Anion Gap 16 mmol/L; BUN/Creatinine Ratio 8.33; Blood Urea Nitrogen 5 mg/dL (7-17); Calcium 8.5 mg/dL (8.4-10.2); Carbon Dioxide 26 mmol/L (22-30); Chloride 104.5 mmol/L (98-107); Glucose 121 mg/dL (65-100); Potassium 3.6 mmol/L (3.6-5.0); Sodium 143 mmol/L (137-145)
[2016-12-15 07:52] LABS: INR 1.96 (0.87-1.13)
--- NOTE | 2016-12-15 08:52 | Progress Note ---
Assessment and Plan Assessment and plan: Patient is a86 YO Female with Asthma, A fib, Diverticulosis, Hypothyroidism lap CCY and MARCO, presents to ED for evaluation for abdominal pain for the past 2 weeks with worsening symptoms over the past 4 hours and associated nausea with vomiting. Abdominal pain most severe in the right lower quadrant intermittent in nature 10 over 10 on admission, worse with movement, and relieved with rest, or lying still. also with decreased stool output in the last 2 weeks since a severe UTI per the patient. Since admission the patient has had 3-4 bowel movements. Pt denies fever, chills, CP, Palpitations, nausea , vomiting, dysuria, trauma, BRBPR, hematemesis, recent ill contacts. Partial small bowel obstruction-possibly secondary to history of MARCO, GI input noted. small bowel follow-through NOTED. Start on GI soft and advance as tolerated. If no further complaints, can discharge in AM. Abdominal pain. Secondary to above continue pain control. Hypothyroidsm. Continue Synthroid Atrial fibrillation. On Coumadin. INR 1.97 today. Resume Coumadin. 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 On Coumadin FULL CODE STATUS History Interval history: Patient seen and examined, in no acute distress. Family at the bedside, No adverse event noted from nursing staff. Hospitalist Physical - Physical exam Narrative exam: VITAL SIGNS: Reviewed. GENERAL: The patient appeared well nourished and normally developed. Vital signs as documented. HEAD: No signs of head trauma. EYES: Pupils are equal. Extraocular motions intact. EARS: Hearing grossly intact. MOUTH: Oropharynx is normal. NECK: No adenopathy, no JVD. CHEST: Chest with clear breath sounds bilaterally. No wheezes, rales, or rhonchi. CARDIAC: Regular rate and rhythm. S1 and S2, without murmurs, gallops, or rubs. VASCULAR: No Edema. Peripheral pulses normal and equal in all extremities. ABDOMEN: Soft, without detectable tenderness. No sign of distention. No rebound or guarding, and no masses palpated. Bowel Sounds normal. MUSCULOSKELETAL: Good range of motion of all major joints. Extremities without clubbing, cyanosis or edema. NEUROLOGIC EXAM: Alert and oriented x 3. No focal sensory or strength deficits. Speech normal. Follows commands. PSYCHIATRIC: Mood normal. SKIN: No rash or lesions. - Constitutional Vitals: Temp Pulse Resp BP Pulse Ox 97.8 F 68 20 124/66 96 12/15/16 08:00 12/15/16 08:00 12/15/16 08:00 12/15/16 08:00 12/15/16 08:00 General appearance: Present: mild distress, obese Results - Labs CBC & Chem 7: 12/15/16 06:57 12/15/16 06:57 Labs: Laboratory Last Values WBC 5.6 K/mm3 (4.5-11.0) 12/15/16 06:57 RBC 4.10 M/mm3 (3.65-5.03) 12/15/16 06:57 Hgb 12.9 gm/dl (10.1-14.3) 12/15/16 06:57 Hct 39.5 % (30.3-42.9) 12/15/16 06:57 MCV 96 fl (79-97) 12/15/16 06:57 MCH 32 pg (28-32) 12/15/16 06:57 MCHC 33 % (30-34) 12/15/16 06:57 RDW 13.4 % (13.2-15.2) 12/15/16 06:57 Plt Count 254 K/mm3 (140-440) 12/15/16 06:57 Lymph % (Auto) 12.4 % (13.4-35.0) L 12/13/16 13:20 [place] % (Auto) 7.3 % (0.0-7.3) 12/13/16 13:20 Eos % (Auto) 0.6 % (0.0-4.3) 12/13/16 13:20 Baso % (Auto) 0.6 % (0.0-1.8) 12/13/16 13:20 Lymph # 0.8 K/mm3 (1.2-5.4) L 12/13/16 13:20 [place] # 0.5 K/mm3 (0.0-0.8) 12/13/16 13:20 Eos # 0.0 K/mm3 (0.0-0.4) 12/13/16 13:20 Baso # 0.0 K/mm3 (0.0-0.1) 12/13/16 13:20 Seg Neutrophils % 79.1 % (40.0-70.0) H 12/13/16 13:20 Seg Neutrophils # 5.4 K/mm3 (1.8-7.7) 12/13/16 13:20 PT 23.4 Sec. (12.2-14.9) H 12/15/16 06:57 INR 1.96 (0.87-1.13) H 12/15/16 06:57 Sodium 143 mmol/L (137-145) 12/15/16 06:57 Potassium 3.6 mmol/L (3.6-5.0) 12/15/16 06:57 Chloride 104.5 mmol/L (98-107) 12/15/16 06:57 Carbon Dioxide 26 mmol/L (22-30) 12/15/16 06:57 Anion Gap 16 mmol/L 12/15/16 06:57 BUN 5 mg/dL (7-17) L 12/15/16 06:57 Creatinine 0.6 mg/dL (0.7-1.2) L 12/15/16 06:57 Estimated GFR > 60 ml/min 12/15/16 06:57 BUN/Creatinine Ratio 8.33 % 12/15/16 06:57 Glucose 121 mg/dL (65-100) H 12/15/16 06:57 POC Glucose 133 (70-105) H 12/15/16 05:34 Lactic Acid 1.50 mmol/L (0.7-2.0) 12/15/16 06:57 Calcium 8.5 mg/dL (8.4-10.2) 12/15/16 06:57 Total Bilirubin 0.50 mg/dL (0.1-1.2) 12/13/16 13:20 AST 51 units/L (5-40) H 12/13/16 13:20 ALT 29 units/L (7-56) 12/13/16 13:20 Alkaline Phosphatase 44 units/L (35-129) 12/13/16 13:20 Total Protein 5.9 g/dL (6.3-8.2) L 12/13/16 13:20 Albumin 3.4 g/dL (3.9-5) L 12/13/16 13:20 Albumin/Globulin Ratio 1.4 % 12/13/16 13:20 Lipase 25 units/L (13-60) 12/13/16 13:20 TSH 0.749 mlU/mL (0.270-4.200) 12/14/16 16:04 Free T4 1.87 ng/dL (0.76-1.46) H 12/14/16 16:04 Urine Color Yellow (Yellow) 12/13/16 12:29 Urine Turbidity Clear (Clear) 12/13/16 12:29 Urine pH 6.0 (5.0-7.0) 12/13/16 12:29 Ur Specific [place] 1.014 (1.003-1.030) 12/13/16 12:29 Urine Protein <15 mg/dl mg/dL (Negative) 12/13/16 12:29 Urine Glucose (UA) Neg mg/dL (Negative) 12/13/16 12:29 Urine Ketones Tr mg/dL (Negative) 12/13/16 12:29 Urine Blood Neg (Negative) 12/13/16 12:29 Urine Nitrite Neg (Negative) 12/13/16 12:29 Urine Bilirubin Neg (Negative) 12/13/16 12:29 Urine Urobilinogen < 2.0 mg/dL (<2.0) 12/13/16 12:29 Ur Leukocyte Esterase Neg (Negative) 12/13/16 12:29 Urine WBC (Auto) 1.0 /HPF (0.0-6.0) 12/13/16 12:29 Urine RBC (Auto) 5.0 /HPF (0.0-6.0) 12/13/16 12:29 Urine Mucus Few /HPF 12/13/16 12:29
--- NOTE | 2016-12-15 12:33 | Gastroenterology Progress Note ---
Assessment and Plan - Patient Problems (1) Partial small bowel obstruction Current Visit: Yes Status: Acute Plan to address problem: - Given the history of a MARCO, as well as the appearance of the CT, I strongly suspect this is a partial SBO, probably from adhesions from prior MARCO. - SBFT in progress but contrast in TI within 30 minutes, so suspect resolved. - Colonoscopy negative in 2 years ago (Brendan Vazquez) so I would not repeat unless recurrent SBO. - OK to advance diet if OK with Surgery, and to d/c home if tolerates PO. - I will sign off; please call with questions. Subjective Date of service: 12/15/16 Principal diagnosis: Partial SBO Interval history: The patient has had 5 Bms in the last 24 hours, and states that her abdomen is much less tender and distended. She has had no emesis. Currently, she is completing her SBFT and is seen in fluoro. She saw no blood in the BMs. Objective - Constitutional Vitals: Temp Pulse Resp BP Pulse Ox 97.8 F 68 20 124/66 96 12/15/16 08:00 12/15/16 08:00 12/15/16 08:00 12/15/16 08:00 12/15/16 08:00 General appearance: no acute distress - EENT Eyes: PERRL, EOM intact - Respiratory Respiratory effort: normal Respiratory: bilateral: CTA - Cardiovascular Rhythm: regular Heart Sounds: Present: S1 & S2 - Gastrointestinal General gastrointestinal: Present: soft, non-tender, non-distended - Labs CBC & Chem 7: 12/15/16 06:57 12/15/16 06:57 Labs: Laboratory Results - last 24 hr 12/14/16 12/14/16 12/14/16 16:04 16:04 18:10 WBC RBC Hgb Hct MCV MCH MCHC RDW Plt Count PT INR Sodium Potassium Chloride Carbon Dioxide Anion Gap BUN Creatinine Estimated GFR BUN/Creatinine Ratio Glucose POC Glucose 107 H Lactic Acid Calcium TSH 0.749 Free T4 1.87 H 12/14/16 12/15/16 12/15/16 21:18 05:34 06:57 WBC RBC Hgb Hct MCV MCH MCHC RDW Plt Count PT INR Sodium Potassium Chloride Carbon Dioxide Anion Gap BUN Creatinine Estimated GFR BUN/Creatinine Ratio Glucose POC Glucose 117 H 133 H Lactic Acid 1.50 Calcium TSH Free T4 12/15/16 12/15/16 12/15/16 06:57 06:57 06:57 WBC 5.6 RBC 4.10 Hgb 12.9 Hct 39.5 MCV 96 MCH 32 MCHC 33 RDW 13.4 Plt Count 254 PT 23.4 H INR 1.96 H Sodium 143 Potassium 3.6 Chloride 104.5 Carbon Dioxide 26 Anion Gap 16 BUN 5 L Creatinine 0.6 L Estimated GFR > 60 BUN/Creatinine Ratio 8.33 Glucose 121 H POC Glucose Lactic Acid Calcium 8.5 TSH Free T4
--- NOTE | 2016-12-15 13:26 | Fluoroscopy Report ---
Gastrografin Some small bowel series: History: Small bowel obstruction, ileus. Findings: Transit of Gastrografin from gastroduodenal and ileocecal region was within an hour. No distention of small bowel. No evidence of obstruction or extravasation. The delayed images do not reveal significant retention of Gastrografin. Impression: No evidence of bowel obstruction.
--- NOTE | 2016-12-15 15:26 | Progress Note ---
Subjective Patient Reports: Positive: no new complaints, feels better, flatus, bowel movement Narrative: feels and looks much better abd soft NO SBO will start PO , home any time ,will see PRN Objective Vital Signs - 12hr 12/15/16 12/15/16 12/15/16 07:30 07:40 08:00 Temperature 97.8 F Pulse Rate [ 62 67 Anterior Bilateral Throughout] Pulse Rate [ 68 Right Radial] Respiratory 20 Rate Respiratory 18 18 Rate [Anterior Bilateral Throughout] Blood Pressure 124/66 [Left Arm] O2 Sat by Pulse 96 Oximetry - Labs 12/15/16 06:57 12/15/16 06:57 Diabetes panel 12/15/16 Range/Units 06:57 Sodium 143 (137-145) mmol/L Potassium 3.6 (3.6-5.0) mmol/L Chloride 104.5 (98-107) mmol/L Carbon Dioxide 26 (22-30) mmol/L BUN 5 L (7-17) mg/dL Creatinine 0.6 L (0.7-1.2) mg/dL Glucose 121 H (65-100) mg/dL Calcium 8.5 (8.4-10.2) mg/dL Thyroid panel 12/14/16 Range/Units 16:04 TSH 0.749 (0.270-4.200) mlU/mL Calcium panel 12/15/16 Range/Units 06:57 Calcium 8.5 (8.4-10.2) mg/dL Pituitary panel 12/14/16 12/15/16 Range/Units 16:04 06:57 Sodium 143 (137-145) mmol/L Potassium 3.6 (3.6-5.0) mmol/L Chloride 104.5 (98-107) mmol/L Carbon Dioxide 26 (22-30) mmol/L BUN 5 L (7-17) mg/dL Creatinine 0.6 L (0.7-1.2) mg/dL Glucose 121 H (65-100) mg/dL Calcium 8.5 (8.4-10.2) mg/dL TSH 0.749 (0.270-4.200) mlU/mL Adrenal panel 12/15/16 Range/Units 06:57 Sodium 143 (137-145) mmol/L Potassium 3.6 (3.6-5.0) mmol/L Chloride 104.5 (98-107) mmol/L Carbon Dioxide 26 (22-30) mmol/L BUN 5 L (7-17) mg/dL Creatinine 0.6 L (0.7-1.2) mg/dL Glucose 121 H (65-100) mg/dL Calcium 8.5 (8.4-10.2) mg/dL
[2016-12-15] MEDS: COUMADIN PO SCH (19:42)
[2016-12-15] MEDS: D5/0.45NS 1,000 ML IV SCH (22:36)
[2016-12-16] MEDS: SYNTHROID PO SCH (05:40)
[2016-12-16 06:56] LABS: INR 2.59 (0.87-1.13)
[2016-12-16] MEDS: BROVANA NEBU IH SCH (08:28)
[2016-12-16] MEDS: PULMICORT IH SCH (08:28)
[2016-12-16] MEDS: D5/0.45NS 1,000 ML IV SCH (09:03)
--- NOTE | 2016-12-16 09:14 | Discharge Summary ---
Providers - Providers Date of Admission: 12/13/16 19:29 Date of discharge: 12/16/16 Attending physician: ELMA MARTINI MD 12/14/16 08:17 Consult to Physician [CONS] Routine Consulting Provider: ROSE TORO Reason For Exam: ileus, partial bowel obstruction Place consult to:: DR. TORO Notified:: [facility] Phone number called:: [phone] Was contact made?: Yes If yes, spoke with:: ALEXIS Time called:: 10:22 Comment:: MARGARITO NOTIFIED 12/14/16 13:40 Consult to Physician [CONS] Routine Consulting Provider: NINI SAEZ Reason For Exam: partial bowel obstruction Place consult to:: Spoke with Dr. Saez Notified:: Dr. Saez Primary care physician: MERLYN LI Hospitalization Reason for admission: sbo Condition: Stable Hospital course: Patient is a 86 YO Female with Asthma, A fib, Diverticulosis, Hypothyroidism lap CCY and MARCO, presents to ED for evaluation for abdominal pain for the past 2 weeks with worsening symptoms over the past 4 hours and associated nausea with vomiting. Abdominal pain most severe in the right lower quadrant intermittent in nature 10 over 10 on admission, worse with movement, and relieved with rest, or lying still. also with decreased stool output in the last 2 weeks since a severe UTI per the patient. Since admission the patient has had 3-4 bowel movements. Pt denies fever, chills, CP, Palpitations, nausea , vomiting, dysuria, trauma, BRBPR, hematemesis, recent ill contacts. patient was seen by GI and surgery with conservative management recommended. patients symptoms improved. Patient tolerated diet, started also on stool softner on discharge. Discharge diagnosis. Partial small bowel obstruction Abdominal pain. Secondary to above Hypothyroidsm. Atrial fibrillation. Secondary coagulopathy Disposition: -01 TO HOME OR SELFCARE Time spent for discharge: 35 MINS Core Measure Documentation - Palliative Care Palliative Care/ Comfort Measures: Not Applicable - Core Measures Any of the following diagnoses?: none - VTE Discharge Requirements Deep Vein Thrombosis/Pulmonary Embolism Present on Admission: No Exam - Physical Exam Narrative exam: VITAL SIGNS: Reviewed. GENERAL: The patient appeared well nourished and normally developed. Vital signs as documented. HEAD: No signs of head trauma. EYES: Pupils are equal. Extraocular motions intact. EARS: Hearing grossly intact. MOUTH: Oropharynx is normal. NECK: No adenopathy, no JVD. CHEST: Chest with clear breath sounds bilaterally. No wheezes, rales, or rhonchi. CARDIAC: Regular rate and rhythm. S1 and S2, without murmurs, gallops, or rubs. VASCULAR: No Edema. Peripheral pulses normal and equal in all extremities. ABDOMEN: Soft, without detectable tenderness. No sign of distention. No rebound or guarding, and no masses palpated. Bowel Sounds normal. MUSCULOSKELETAL: Good range of motion of all major joints. Extremities without clubbing, cyanosis or edema. NEUROLOGIC EXAM: Alert and oriented x 3. No focal sensory or strength deficits. Speech normal. Follows commands. PSYCHIATRIC: Mood normal. SKIN: No rash or lesions. - Constitutional Vitals: Temp Pulse Resp BP Pulse Ox 98.7 F 66 18 141/86 97 12/15/16 23:48 12/16/16 08:46 12/16/16 08:46 12/15/16 23:48 12/16/16 08:31 Plan Activity: advance as tolerated, fall precautions Diet: regular (GI soft for the next two days and advance as tolerated) Special Instructions: record daily BP diary Additional Instructions: monitor INR in 2 days and then as planned by PCP Follow up with: PRIMARY CARE, [Referring] - 3-5 Days Forms: Warfarin Discharge Instruction Prescriptions: Sennosides [Senna] 8.6 mg PO DAILY #30 tablet
[2016-12-16 09:34] VITALS: BP 0/0
--- NOTE | 2016-12-16 12:07 | Progress Note ---
Subjective Patient Reports: Positive: no new complaints, feels better, flatus, bowel movement Narrative: doing excellent tolerating PO well , abd flat and soft home toda Per Dr Yuan , indicated to PT this may reccur. to see me PRN Objective Vital Signs - 12hr 12/16/16 12/16/16 12/16/16 07:10 08:29 08:31 Temperature 98 F Pulse Rate [ 73 Anterior Bilateral Throughout] Pulse Rate [ 68 Right Radial] Respiratory 16 Rate Respiratory 18 Rate [Anterior Bilateral Throughout] Blood Pressure 0/0 [Left Arm] Blood Pressure 150/68 [Right Arm] O2 Sat by Pulse 97 Oximetry 12/16/16 08:46 Temperature Pulse Rate [ 66 Anterior Bilateral Throughout] Pulse Rate [ Right Radial] Respiratory Rate Respiratory 18 Rate [Anterior Bilateral Throughout] Blood Pressure [Left Arm] Blood Pressure [Right Arm] O2 Sat by Pulse Oximetry - Labs 12/15/16 06:57 12/15/16 06:57
[2016-12-16] MEDS ORDERED: COUMADIN PO SCH (17:00)
== END 2016-12-16 13:00 | disposition home or self-care (01) | DRG 388 ==
LOC: ED 11:34 → 3A 19:29
PROVIDERS: ADMIT Internal Medicine; ATTEND Internal Medicine
DX: K56.60 Unspecified intestinal obstruction (principal); K65.9 Peritonitis, unspecified; E66.2 Morbid (severe) obesity with alveolar hypoventilation; D68.9 Coagulation defect, unspecified; I48.91 Unspecified atrial fibrillation; J45.909 Unspecified asthma, uncomplicated; E03.9 Hypothyroidism, unspecified; M43.16 Spondylolisthesis, lumbar region; E66.9 Obesity, unspecified; Z68.32 Body mass index [BMI] 32.0-32.9, adult; Z82.49 Family history of ischemic heart disease and other diseases of the circulatory system; Z88.2 Allergy status to sulfonamides; Z90.710 Acquired absence of both cervix and uterus; Z79.01 Long term (current) use of anticoagulants; Z88.1 Allergy status to other antibiotic agents; Z88.8 Allergy status to other drugs, medicaments and biological substances; Z90.49 Acquired absence of other specified parts of digestive tract
CPT/HCPCS: 36415; 74020; 74177; 74250; 80048; 80053; 81001; 82140; 82962; 83690; 84439; 84443; 85025; 85027; 85610; 94640; J1956; Q9963; Q9967

== ENCOUNTER 2018-08-30 13:26 | Emergency (ER) | payer MEDICARE ==
--- NOTE | 2018-08-30 14:13 | Emergency Department Report ---
Blank Doc - Documentation Documentation: 88 y/o c/o cough and congestion with left chest pain associated with exertional sob/dyspnea. Plan cardic evaluation and cxr
[2018-08-30 15:04] LABS: Basophils # (Auto) 0.1 K/mm3 (0.0-0.1); Basophils % (Auto) 0.9 % (0.0-1.8); Eosinophils # (Auto) 0.1 K/mm3 (0.0-0.4); Eosinophils % (Auto) 1.7 % (0.0-4.3); Hematocrit 43.5 % (30.3-42.9); Hemoglobin 14.3 gm/dl (10.1-14.3); Lymphocytes # (Auto) 1.2 K/mm3 (1.2-5.4); Lymphocytes % (Auto) 23.3 % (13.4-35.0); Mean Corpuscular HGB Conc 33 % (30-34); Mean Corpuscular Volume 98 fl (79-97); Monocytes # (Auto) 0.7 K/mm3 (0.0-0.8); Monocytes % (Auto) 12.7 % (0.0-7.3); Platelet Count 230 K/mm3 (140-440); Red Blood Count 4.42 M/mm3 (3.65-5.03); Red Cell Distribution Width 13.8 % (13.2-15.2)
[2018-08-30 15:21] LABS: Alanine Aminotransferase 18 units/L (7-56); Albumin 4.1 g/dL (3.9-5); BUN/Creatinine Ratio 19; Blood Urea Nitrogen 13 mg/dL (7-17); Calcium 9.1 mg/dL (8.4-10.2); Hemolysis Index 14
[2018-08-30] MEDS ORDERED: ATROVENT IH ONE (15:44)
[2018-08-30] MEDS ORDERED: SOLU-Medrol IV ONE (15:44)
[2018-08-30] MEDS ORDERED: PROVENTIL IH ONE (15:44)
--- NOTE | 2018-08-30 15:51 | Emergency Department Report ---
HPI - General Chief Complaint: Dyspnea/Respdistress Time Seen by Provider: 08/30/18 14:09 - HPI HPI: Room 18 The patient is an 88-year-old female presenting with chief complaint of shortness of breath and cough. The patient states for a little over one week she's had shortness of breath and a cough productive of cloudy white sputum. Patient admits to rhinorrhea. The patient states her home medications including her nebulizers have not improved her symptoms. The patient states the symptoms are worse at night. Throughout the week the patient states she is intermittent left-sided chest pain described as an aching which she believes is related to "over-spraying" her Symbicort and nasal steroid. Patient denies nausea/vomiting or diaphoresis with her chest pain. Location: [See above] Duration: [See above] Quality: [See above] Severity: [See above] Modifying factors: [see above] Context: [see above] Mode of transportation: [not driving] ED Past Medical Hx - Past Medical History Hx Asthma: Yes Additional medical history: a-fib, diverticulitis, gastritis, hypothyroidism - Surgical History Hx Cholecystectomy: Yes - Family History Family history: no significant - Social History Smoking Status: Former Smoker (none 40 years) Substance Use Type: None - Medications Home Medications: Home Medications Medication Instructions Recorded Confirmed Last Taken Type Budesoni/Formotero 160-4.5(Nf) 2 puff IH BID 03/02/14 12/13/16 12/12/16 20:00 History [Symbicort 160-4.5 (Nf)] 2 PUFFS Levothyroxine [Synthroid] 75 mcg PO QAM 03/02/14 12/13/16 12/12/16 06:00 History Propylene Glycol/Peg 400/Pf 1 - 2 drop OP PRN 03/02/14 12/13/16 03/02/14 History [Systane 0.3-0.4% Eye Drops] ALBUTEROL Inhaler (OR & NICU) 2 puff IH BID PRN 12/13/16 12/13/16 Unknown History [ProAir HFA Inhaler] Warfarin Sodium [Coumadin] 2.5 mg PO QPM 12/13/16 12/13/16 12/12/16 20:00 History 2.5 MG Sennosides [Senna] 8.6 mg PO DAILY #30 tablet 12/16/16 Unknown Rx Azithromycin [Zithromax Z-TRICIA] 0 mg PO DAILY #6 tab 08/30/18 Unknown Rx ED Review of Systems ROS: Stated complaint: TONI/COUGHING Other details as noted in HPI Constitutional: denies: diaphoresis, fever Eyes: denies: eye pain ENT: other (rhinorrhea) Respiratory: cough, shortness of breath Cardiovascular: chest pain Endocrine: no symptoms reported Gastrointestinal: denies: abdominal pain, nausea, vomiting Genitourinary: denies: dysuria Musculoskeletal: denies: back pain Neurological: denies: headache Physical Exam - Physical Exam Vital Signs: Vital Signs 08/30/18 08/30/18 14:05 15:44 Temperature 98 F 97.8 F Pulse Rate 82 77 Respiratory 22 16 Rate Blood Pressure 177/94 Blood Pressure 155/72 [Right] O2 Sat by Pulse 95 97 Oximetry Physical Exam: GENERAL: The patient is well-developed well-nourished female lying on stretcher not appearing to be in acute distress. [] HEENT: Normocephalic. Atraumatic. Extraocular motions are intact. Patient has moist mucous membranes. NECK: Supple. Trachea midline CHEST/LUNGS: Faint end expiratory Wheezing greatest lung base. There is no respiratory distress noted. HEART/CARDIOVASCULAR: Regular. There is no tachycardia. There is no gallop rub or murmur. ABDOMEN: Abdomen is soft, nontender. Patient has normal bowel sounds. There is no abdominal distention. SKIN: There is no rash. There is no edema. There is no diaphoresis. NEURO: The patient is awake, alert, and oriented. The patient is cooperative. The patient has normal speech MUSCULOSKELETAL: There is no evidence of acute injury. ED Course Vital Signs 08/30/18 08/30/18 14:05 15:44 Temperature 98 F 97.8 F Pulse Rate 82 77 Respiratory 22 16 Rate Blood Pressure 177/94 Blood Pressure 155/72 [Right] O2 Sat by Pulse 95 97 Oximetry - Reevaluation(s) Reevaluation #1: 08/30/18 18:18 I discussed with the patient and spouse at length my concern for her intermittent chest pain. I expressed my recommendation that she be admitted to the hospital for further observation and that a cardiac event cannot be excluded based solely off of the blood tests and EKG performed in the ED. Patient is spouse verbalize understanding the states they will likely the hospital AGAINST MEDICAL ADVICE ED Medical Decision Making - Lab Data Result diagrams: 08/30/18 14:49 08/30/18 14:49 Laboratory Tests 08/30/18 08/30/18 08/30/18 14:49 14:49 14:49 WBC 5.3 RBC 4.42 Hgb 14.3 Hct 43.5 H MCV 98 H MCH 32 MCHC 33 RDW 13.8 Plt Count 230 Lymph % (Auto) 23.3 [place] % (Auto) 12.7 H Eos % (Auto) 1.7 Baso % (Auto) 0.9 Lymph # 1.2 [place] # 0.7 Eos # 0.1 Baso # 0.1 Seg Neutrophils % 61.4 Seg Neutrophils # 3.3 PT INR APTT Sodium 138 Potassium 4.5 Chloride 101.2 Carbon Dioxide 26 Anion Gap 15 BUN 13 Creatinine 0.7 Estimated GFR > 60 BUN/Creatinine Ratio 19 Glucose 97 Calcium 9.1 Total Bilirubin 0.40 AST 29 ALT 18 Alkaline Phosphatase 77 Troponin T < 0.010 NT-Pro-B Natriuret Pep 439.4 Total Protein 7.2 Albumin 4.1 Albumin/Globulin Ratio 1.3 Influenza A (Rapid) Influenza B (Rapid) 08/30/18 08/30/18 08/30/18 15:51 16:50 17:05 WBC RBC Hgb Hct MCV MCH MCHC RDW Plt Count Lymph % (Auto) [place] % (Auto) Eos % (Auto) Baso % (Auto) Lymph # [place] # Eos # Baso # Seg Neutrophils % Seg Neutrophils # PT 22.9 H INR 1.88 H APTT 37.0 H Sodium Potassium Chloride Carbon Dioxide Anion Gap BUN Creatinine Estimated GFR BUN/Creatinine Ratio Glucose Calcium Total Bilirubin AST ALT Alkaline Phosphatase Troponin T < 0.010 NT-Pro-B Natriuret Pep Total Protein Albumin Albumin/Globulin Ratio Influenza A (Rapid) Negative Influenza B (Rapid) Negative - EKG Data -: EKG Interpreted by Me Rate: normal - EKG Data When compared to previous EKG there are: previous EKG unavailable Interpretation: other (atrial fibrillation rate controlled at 85 bpm. No ischemic changes seen) - Radiology Data Radiology results: report reviewed (chest x-ray), image reviewed (chest x-ray) interpreted by me: Chest x-ray-no focal infiltrates, no pneumothorax [facility] [address] [place] [address] XRay Report Signed Patient: BRADY DIAZ MR#: [id number] : 1930 Acct:[id number] Age/Sex: 88 / F ADM Date: 08/30/18 Loc: ED Attending Dr: Ordering Physician: ALEXUS NASSAR Date of Service: 08/30/18 Procedure(s): XR chest routine 2V Accession Number(s): [id number] cc: ALEXUS NASSAR Fluoro Time In Minutes: PROCEDURE: XR CHEST ROUTINE 2V TECHNIQUE: PA and lateral views of the chest were obtained. HISTORY: excessive coughing COMPARISONS: Prior chest x-ray 10/23/2012 FINDINGS: The heart is mildly enlarged. The pulmonary vasculature is not significantly distended. No evidence of pulmonary edema or pleural effusion. Thin linear bands of parenchymal scarring seen in the left lung base. This is unchanged from the prior study. No focal dense consolidations effusions or masses are seen. Lungs are hyperinflated consistent with underlying COPD. Bones are diffusely demineralized. No acute bony abnormalities are identified. IMPRESSION: COPD. Mild cardiomegaly. Linear scarring again visualized left lung base. No acute pulmonary process visualized. Osteoporosis is suspected. No other abnormalities are seen.. This document is electronically signed by Neil Abraham MD., August 30 2018 03:48:11 PM ET Transcribed By: DFN Dictated By: NEIL ABRAHAM MD Electronically Authenticated By: NEIL ABRAHAM MD Signed Date/Time: 08/30/18 1550 DD/ 1454 TD/TT: 08/30/18 1454 - Differential Diagnosis COPD exacerbation, pneumonia, ACS Critical care attestation.: If time is entered above; I have spent that time in minutes in the direct care of this critically ill patient, excluding procedure time. ED Disposition Clinical Impression: Chest pain, Cough Disposition: LEFT AGAINST MED ADVICE Is pt being admited?: No Does the pt Need Aspirin: No Condition: Undetermined Instructions: Chest Pain (ED) Prescriptions: Azithromycin [Zithromax Z-TRICIA] 0 mg PO DAILY #6 tab Referrals: [facility] [place] MD LAKESHIA [Primary Care Provider] - 3-5 Days IRVING WEINSTEIN MD [Staff Physician] - 3-5 Days MARISOL TINSLEY MD [Staff Physician] - JOE Time of Disposition: 18:20 (patient leaving AMA)
[2018-08-30 16:08] LABS: INR 1.88 (0.87-1.13)
[2018-08-30 18:28] VITALS: BP 159/78
== END 2018-08-30 18:35 | disposition left against medical advice (07) ==
LOC: ED 13:26
DX: R07.9 Chest pain, unspecified (principal); R05 Cough; J45.909 Unspecified asthma, uncomplicated; Z87.891 Personal history of nicotine dependence
CPT/HCPCS: 36415; 71046; 80053; 83880; 84484; 85025; 85610; 85730; 87400; 93005; 93010; 94644; 96374; 99284; J2930

== ENCOUNTER 2022-01-25 14:11 | Emergency (ER) | payer MEDICARE ==
[2022-01-25 16:33] LABS: Hematocrit 44.2 % (30.3-42.9); Hemoglobin 14.7 gm/dl (10.1-14.3); Mean Corpuscular HGB Conc 33 % (30-34); Mean Corpuscular Volume 97 fl (79-97); Platelet Count 219 K/mm3 (140-440); Red Blood Count 4.54 M/mm3 (3.65-5.03); Red Cell Distribution Width 14.7 % (13.2-15.2)
[2022-01-25 17:08] LABS: Alanine Aminotransferase 9 units/L (7-56); Albumin 4.5 g/dL (3.9-5); Blood Urea Nitrogen 12 mg/dL (7-17); Calcium 9.7 mg/dL (8.4-10.2); Hemolysis Index 99
[2022-01-25 17:27] LABS: BUN/Creatinine Ratio 20
[2022-01-25 17:28] LABS: Band Neutrophils # (Manual) 0.3 K/mm3; Basophils % (Manual) 0 % (0.0-1.8); Macrocytosis Rare; Ovalocytes Few; Platelet Estimate Consistent w Auto; Total Cells Counted 100
--- NOTE | 2022-01-25 19:58 | Cat Scan Report ---
CT ABDOMEN AND PELVIS WITH CONTRAST INDICATION / CLINICAL INFORMATION: pain 100ml of [id number] . TECHNIQUE: Axial CT images were obtained through the abdomen and pelvis after IV contrast. All CT sc ans at this location are performed using CT dose reduction for ALARA by means of automated exposure c ontrol. COMPARISON: CT dated 02/06/19 FINDINGS: LOWER CHEST: No significant abnormality. LIVER: No significant abnormality. GALLBLADDER: Cholecystectomy. BILE DUCTS: No significant abnormality. PANCREAS: No significant abnormality. SPLEEN: No significant abnormality. ADRENALS: No significant abnormality. RIGHT KIDNEY / URETER: No significant abnormality. LEFT KIDNEY / URETER: No significant abnormality. STOMACH / SMALL BOWEL: Mildly thickened loops of mid small bowel in the pelvis. No bowel obstruction. COLON: Diverticulosis without acute inflammation. APPENDIX: No significant abnormality. PERITONEUM: Small amount of free fluid in the pelvis. No free air. No fluid collection. LYMPH NODES: No significant adenopathy. AORTA / ARTERIES: No significant abnormality. IVC / VEINS: No significant abnormality. URINARY BLADDER: No significant abnormality. REPRODUCTIVE ORGANS: Uterus is absent. No significant adnexal abnormality. ADDITIONAL FINDINGS: None. SKELETAL SYSTEM: No significant abnormality. IMPRESSION: 1. Mildly thickened loops of mid small bowel in the pelvis with a similar appearance as previous CT s can. Findings may represent focal enteritis. No bowel obstruction. No free air. Signer Name: Kana Estevez MD Signed: 01/25/2022 7:54 PM Workstation Name: [id number]
[2022-01-25 23:12] LABS: Mucus,Urine FEW /HPF
[2022-01-25 23:15] LABS: Color,Urine Yellow (Yellow); Ictotest,Urine Negative (Negative)
--- NOTE | 2022-01-26 00:02 | Emergency Department Report ---
ED Abdominal Pain HPI - General Chief Complaint: Abdominal Pain Stated Complaint: STOMACH PAIN/VOMITTING Time Seen by Provider: 01/25/22 22:25 Source: patient Mode of arrival: Ambulatory Limitations: Altered Mental Status, Physical Limitation - History of Present Illness Initial Comments: Patient is an 89-year-old female presenting to ED with complaint of sharp epigastric pain beginning this morning at approximately 10 AM. She reports associated nausea and vomiting. Denies recent fever or chills. No changes in bowel habits. She has been waiting for room since this morning. Reports that her symptoms are resolved at this time. Severity scale (0 -10): 9 - Related Data Home Medications Medication Instructions Recorded Confirmed Last Taken Budesoni/Formotero 160-4.5(Nf) 2 puff IH BID 03/02/14 12/13/16 12/12/16 20:00 [Symbicort 160-4.5 (Nf)] 2 PUFFS Levothyroxine [Synthroid] 75 mcg PO QAM 03/02/14 12/13/16 12/12/16 06:00 Propylene Glycol/Peg 400/Pf 1 - 2 drop OP PRN 03/02/14 12/13/16 03/02/14 [Systane 0.3-0.4% Eye Drops] Albuterol Mdi (or & Nicu Only) 2 puff IH BID PRN 12/13/16 12/13/16 Unknown [ProAir HFA Inhaler] Warfarin Sodium [Coumadin] 2.5 mg PO QPM 12/13/16 12/13/16 12/12/16 20:00 2.5 MG Previous Rx's Medication Instructions Recorded Last Taken Type Sennosides [Senna] 8.6 mg PO DAILY #30 tablet 12/16/16 Unknown Rx Azithromycin [Zithromax Z-TRICIA] 0 mg PO DAILY #6 tab 08/30/18 Unknown Rx Ciprofloxacin HCl [Ciprofloxacin 500 mg PO Q12HR #6 tab 02/06/19 Unknown Rx TAB] Promethazine [Phenergan] 25 mg PO Q6HR PRN #20 tab 02/06/19 Unknown Rx traMADoL [Ultram 50 MG tab] 50 mg PO Q6HR PRN #14 tablet 02/06/19 Unknown Rx Famotidine [Pepcid] 10 mg PO DAILY #30 tablet 01/26/22 Unknown Rx Allergies Allergy/AdvReac Type Severity Reaction Status Date / Time amoxicillin [Amoxicillin] Allergy Nausea Verified 12/13/16 19:40 pantoprazole sodium Allergy Rash Verified 12/13/16 19:40 [From Protonix] Sulfa (Sulfonamide Allergy Rash Verified 12/13/16 19:40 Antibiotics) esomeprazole magnesium AdvReac Unknown Verified 12/13/16 19:40 [From Nexium] ED Review of Systems ROS: Stated complaint: STOMACH PAIN/VOMITTING Other details as noted in HPI Constitutional: denies: chills, fever Respiratory: denies: cough, shortness of breath, wheezing Cardiovascular: denies: chest pain, palpitations Gastrointestinal: abdominal pain, nausea, vomiting Genitourinary: as per HPI Musculoskeletal: denies: back pain, joint swelling, arthralgia Skin: denies: rash, lesions Neurological: denies: headache, weakness, paresthesias ED Past Medical Hx - Past Medical History Hx Deep Vein Thrombosis: No Hx Seizures: No Hx Asthma: Yes Hx Dementia: No Additional medical history: a-fib, diverticulitis, gastritis, hypothyroidism - Surgical History Hx Cholecystectomy: Yes Additional Surgical History: Hysterectomy - Social History Smoking Status: Never Smoker - Medications Home Medications: Home Medications Medication Instructions Recorded Confirmed Last Taken Type Budesoni/Formotero 160-4.5(Nf) 2 puff IH BID 03/02/14 12/13/16 12/12/16 20:00 History [Symbicort 160-4.5 (Nf)] 2 PUFFS Levothyroxine [Synthroid] 75 mcg PO QAM 03/02/14 12/13/16 12/12/16 06:00 History Propylene Glycol/Peg 400/Pf 1 - 2 drop OP PRN 03/02/14 12/13/16 03/02/14 History [Systane 0.3-0.4% Eye Drops] Albuterol Mdi (or & Nicu Only) 2 puff IH BID PRN 12/13/16 12/13/16 Unknown History [ProAir HFA Inhaler] Warfarin Sodium [Coumadin] 2.5 mg PO QPM 12/13/16 12/13/16 12/12/16 20:00 History 2.5 MG Sennosides [Senna] 8.6 mg PO DAILY #30 tablet 12/16/16 Unknown Rx Azithromycin [Zithromax Z-TRICIA] 0 mg PO DAILY #6 tab 08/30/18 Unknown Rx Ciprofloxacin HCl [Ciprofloxacin 500 mg PO Q12HR #6 tab 02/06/19 Unknown Rx TAB] Promethazine [Phenergan] 25 mg PO Q6HR PRN #20 tab 02/06/19 Unknown Rx traMADoL [Ultram 50 MG tab] 50 mg PO Q6HR PRN #14 tablet 02/06/19 Unknown Rx Famotidine [Pepcid] 10 mg PO DAILY #30 tablet 01/26/22 Unknown Rx ED Physical Exam - General Limitations: Altered Mental Status, Physical Limitation General appearance: alert, in no apparent distress - Head Head exam: Present: atraumatic, normocephalic - Respiratory Respiratory exam: Present: normal lung sounds bilaterally. Absent: respiratory distress - Cardiovascular Cardiovascular Exam: Present: regular rate, normal rhythm, normal heart sounds - GI/Abdominal GI/Abdominal exam: Present: soft. Absent: distended, tenderness - Rectal Rectal exam: Present: deferred - Neurological Exam Neurological exam: Present: alert, oriented X3 - Psychiatric Psychiatric exam: Present: normal affect, normal mood - Skin Skin exam: Present: warm, dry, intact, normal color ED Course Vital Signs 01/25/22 01/25/22 14:50 22:25 Temperature 98.2 F 98.0 F Pulse Rate 62 78 Respiratory 18 18 Rate Blood Pressure 197/98 138/77 [Left] O2 Sat by Pulse 93 98 Oximetry ED Medical Decision Making - Lab Data Result diagrams: 01/25/22 16:06 01/25/22 16:06 - Medical Decision Making CBC grossly unremarkable. CMP otherwise unremarkable except for mild hyperkalemia of 5.2. CT abdomen and pelvis unchanged from previous study. I discussed the results with patient and . Differential diagnosis includes but not limited to acute gastritis, sliding hiatal hernia. I encouraged her to follow-up with her PCP within 1 to 2 weeks and possibly GI specialist if symptoms worsen. Critical care attestation.: If time is entered above; I have spent that time in minutes in the direct care of this critically ill patient, excluding procedure time. ED Disposition Clinical Impression: Epigastric pain, Nausea and vomiting, Hyperkalemia Disposition: HOME / SELF CARE / HOMELESS Is pt being admited?: No Condition: Stable Instructions: Abdominal Pain (ED), Nausea and Vomiting, Adult, Abdominal Pain, Adult, [id number], Hyperkalemia Additional Instructions: Your potassium was mildly elevated. Please follow-up with your regular doctor within 1 to 2 weeks to recheck your potassium. You may also consider follow-up with a systems test analyst if your symptoms worsen regarding your abdominal pain. Time of Disposition: 00:03
[2022-01-26 01:33] VITALS: BP 138/75
== END 2022-01-26 00:50 | disposition home or self-care (01) ==
LOC: ED 14:11
DX: R10.13 Epigastric pain (principal); R11.2 Nausea with vomiting, unspecified; E87.5 Hyperkalemia; J45.909 Unspecified asthma, uncomplicated; Z88.0 Allergy status to penicillin; Z88.8 Allergy status to other drugs, medicaments and biological substances
CPT/HCPCS: 36415; 74177; 80053; 81001; 83690; 85007; 85025; 99284; Q9967